=== PATIENT | male | born 1930 | race Caucasian/White ===

== ENCOUNTER 2018-10-09 10:03 | Emergency (ER) | payer MEDICARE ==
[2018-10-09 10:22] VITALS: RESP 16; TEMP 97.8
[2018-10-09] MEDS ORDERED: SODIUM CHLORIDE 0.9% 1,000 ML IV STA (10:56)
[2018-10-09 11:56] LABS: Basophils % (A) 0 %; Eosinophils % (A) 0 %; HCT 42.3 % (39.0-53.0); Lymphocytes # (A) 0.8 k/uL (1.0-4.8); Lymphocytes % (A) 10 %; MCH 31.2 pg (25.0-35.0); MCV 94.6 fL (80.0-100.0); Mean Platelet Volume 7.5; Monocytes # (A) 0.4 k/uL (0-1.0); Monocytes % (A) 5 %; Neutrophils % (A) 83 %; Platelet Count 145 k/uL (150-450); RBC 4.47 m/uL (4.30-5.90); RDW 13.4 % (11.5-15.5); WBC 8.4 k/uL (3.8-10.6)
[2018-10-09 12:08] LABS: INR 0.9 (<1.2); Partial Thromboplastin Time 23.4 sec (22.0-30.0); Prothrombin Time 10.1 sec (9.0-12.0)
[2018-10-09 12:09] LABS: Albumin 4.3 g/dL (3.5-5.0); Calcium 9.6 mg/dL (8.4-10.2); Potassium 5.3 mmol/L (3.5-5.1); Total Bilirubin 0.6 mg/dL (0.2-1.3); Total Protein 7.2 g/dL (6.3-8.2)
--- NOTE | 2018-10-09 12:11 | ED ---
General Adult HPI - General Chief complaint: Extremity Injury, Lower Stated complaint: hip pain/bowel problems Time Seen by Provider: 10/09/18 10:27 Source: patient, RN notes reviewed Mode of arrival: wheelchair Limitations: no limitations - History of Present Illness Initial comments: Patient is a 88-year-old male presented to the emergency room today with a chief complaint of bilateral hip pain radiating down his legs. He does admit that he began having pain yesterday morning. He did go to urgent care. Patient states that he's noticed pain is worse today when he stands up and with certain movements. States better when he sits down. Currently rates pain 4/ 10. Denies any injury or trauma. States that both left and right hip radiates down to approximately the back of the knee. Patient does admit that he had some loose bowel movement this morning had some lower abdominal cramping. States abdomen pain is gone at this time. He denies any other complaints or symptoms currently. Denies any saddle anesthesia, bowel or bladder incontinence or retention. Patient denies any recent fever, chills, shortness of breath, chest pain, nausea or vomiting, numbness or tingling, dysuria or hematuria, constipation, headaches or visual changes, or any other complaints. - Related Data Home Medications Medication Instructions Recorded Confirmed Allopurinol [Zyloprim] 100 mg PO DAILY 10/09/18 10/09/18 Atorvastatin [Lipitor] 40 mg PO HS 10/09/18 10/09/18 Carvedilol [Coreg] 6.25 mg PO BID 10/09/18 10/09/18 Ferrous Sulfate [Iron (65 MG 325 mg PO DAILY 10/09/18 10/09/18 Elemental)] Furosemide [Lasix] 20 mg PO DAILY 10/09/18 10/09/18 Glimepiride [Amaryl] 2 mg PO DAILY 10/09/18 10/09/18 Niacin [Niaspan] 500 mg PO HS 10/09/18 10/09/18 sitaGLIPtin [Januvia] 50 mg PO DAILY 10/09/18 10/09/18 traZODone HCL [Desyrel] 50 mg PO HS 10/09/18 10/09/18 Previous Rx's Medication Instructions Recorded Hydrocodone/Acetaminophen [Mcdowell 1 each PO Q6HR PRN #12 tab 10/09/18 5-325] Allergies Allergy/AdvReac Type Severity Reaction Status Date / Time No Known Allergies Allergy Verified 10/09/18 11:09 Review of Systems ROS Statement: Those systems with pertinent positive or pertinent negative responses have been documented in the HPI. ROS Other: All systems not noted in ROS Statement are negative. Past Medical History Past Medical History: Diabetes Mellitus, Hypertension Additional Past Medical History / Comment(s): Sciatica, kidney disease History of Any Multi-Drug Resistant Organisms: None Reported Past Surgical History: Back Surgery Additional Past Surgical History / Comment(s): Prostate cancer Past Psychological History: No Psychological Hx Reported Smoking Status: Never smoker Past Alcohol Use History: Occasional Past Drug Use History: None Reported General Exam Limitations: no limitations Course Vital Signs 10/09/18 10:16 Temperature 97.8 F Pulse Rate 89 Respiratory 16 Rate Blood Pressure 148/81 O2 Sat by Pulse 97 Oximetry - Reevaluation(s) Reevaluation #1: 10/09/18 12:25 Patient's kidney function mildly elevated here in the emergency room. CT the abdomen and pelvis was ordered with contrast. However, due to patient's kidney function being elevated was discussed with the patient about performing CT with contrast causing possible further damage and possibility of needing dialysis. Patient does admit that he does see a manager of case management and he has been worried about his kidneys so he has declined any IV contrast. He is agreeable to perform CT without. Medical Decision Making - Medical Decision Making Case discussed in detail with attending physician Dr. Cook. CT the abdomen and pelvis was performed without contrast as patient stated that he was worried about his kidneys and did not want to have IV contrast. Was discussed in detail that a CT without contrast would not show us evidence of any issues with aorta or other arteries. Patient was aware of this states that this pain is worse with movements. He is agreeable to try pain medicine. Was discussed about further evaluation with aorta by ultrasound which he has declined at this time. States he plans follow-up with his family doctor tomorrow. Patient will be given short prescription of Mcdowell. An opiate started talking form was reviewed and filled out. Patient will be discharged home. Return for any other concerns. - Lab Data Result diagrams: 10/09/18 11:34 10/09/18 11:34 Lab Results 10/09/18 10/09/18 10/09/18 Range/Units 11:34 11:34 11:34 WBC 8.4 (3.8-10.6) k/uL RBC 4.47 (4.30-5.90) m/uL Hgb 14.0 (13.0-17.5) gm/dL Hct 42.3 (39.0-53.0) % MCV 94.6 (80.0-100.0) fL MCH 31.2 (25.0-35.0) pg MCHC 33.0 (31.0-37.0) g/dL RDW 13.4 (11.5-15.5) % Plt Count 145 L (150-450) k/uL Neutrophils % 83 % Lymphocytes % 10 % Monocytes % 5 % Eosinophils % 0 % Basophils % 0 % Neutrophils # 7.0 (1.3-7.7) k/uL Lymphocytes # 0.8 L (1.0-4.8) k/uL Monocytes # 0.4 (0-1.0) k/uL Eosinophils # 0.0 (0-0.7) k/uL Basophils # 0.0 (0-0.2) k/uL PT 10.1 (9.0-12.0) sec INR 0.9 (<1.2) APTT 23.4 (22.0-30.0) sec Sodium 137 (137-145) mmol/L Potassium 5.3 H (3.5-5.1) mmol/L Chloride 104 (98-107) mmol/L Carbon Dioxide 22 (22-30) mmol/L Anion Gap 11 mmol/L BUN 44 H (9-20) mg/dL Creatinine 1.56 H (0.66-1.25) mg/dL Est GFR (CKD-EPI)AfAm 45 (>60 ml/min/1.73 sqM) Est GFR (CKD-EPI)NonAf 39 (>60 ml/min/1.73 sqM) Glucose 331 H (74-99) mg/dL Calcium 9.6 (8.4-10.2) mg/dL Total Bilirubin 0.6 (0.2-1.3) mg/dL AST 29 (17-59) U/L ALT 33 (21-72) U/L Alkaline Phosphatase 70 (38-126) U/L Total Protein 7.2 (6.3-8.2) g/dL Albumin 4.3 (3.5-5.0) g/dL Urine Color Urine Appearance (Clear) Urine pH (5.0-8.0) Ur Specific [place] (1.001-1.035) Urine Protein (Negative) Urine Glucose (UA) (Negative) Urine Ketones (Negative) Urine Blood (Negative) Urine Nitrite (Negative) Urine Bilirubin (Negative) Urine Urobilinogen (<2.0) mg/dL Ur Leukocyte Esterase (Negative) 10/09/18 Range/Units 13:05 WBC (3.8-10.6) k/uL RBC (4.30-5.90) m/uL Hgb (13.0-17.5) gm/dL Hct (39.0-53.0) % MCV (80.0-100.0) fL MCH (25.0-35.0) pg MCHC (31.0-37.0) g/dL RDW (11.5-15.5) % Plt Count (150-450) k/uL Neutrophils % % Lymphocytes % % Monocytes % % Eosinophils % % Basophils % % Neutrophils # (1.3-7.7) k/uL Lymphocytes # (1.0-4.8) k/uL Monocytes # (0-1.0) k/uL Eosinophils # (0-0.7) k/uL Basophils # (0-0.2) k/uL PT (9.0-12.0) sec INR (<1.2) APTT (22.0-30.0) sec Sodium (137-145) mmol/L Potassium (3.5-5.1) mmol/L Chloride (98-107) mmol/L Carbon Dioxide (22-30) mmol/L Anion Gap mmol/L BUN (9-20) mg/dL Creatinine (0.66-1.25) mg/dL Est GFR (CKD-EPI)AfAm (>60 ml/min/1.73 sqM) Est GFR (CKD-EPI)NonAf (>60 ml/min/1.73 sqM) Glucose (74-99) mg/dL Calcium (8.4-10.2) mg/dL Total Bilirubin (0.2-1.3) mg/dL AST (17-59) U/L ALT (21-72) U/L Alkaline Phosphatase (38-126) U/L Total Protein (6.3-8.2) g/dL Albumin (3.5-5.0) g/dL Urine Color Yellow Urine Appearance Clear (Clear) Urine pH 6.5 (5.0-8.0) Ur Specific [place] 1.011 (1.001-1.035) Urine Protein Trace H (Negative) Urine Glucose (UA) 4+ H (Negative) Urine Ketones Negative (Negative) Urine Blood Negative (Negative) Urine Nitrite Negative (Negative) Urine Bilirubin Negative (Negative) Urine Urobilinogen <2.0 (<2.0) mg/dL Ur Leukocyte Esterase Negative (Negative) Disposition Clinical Impression: Back pain Disposition: HOME SELF-CARE Condition: Good Instructions: Acute Low Back Pain (ED) Additional Instructions: Please use medication as discussed. Please follow-up with family doctor in the next 2 days. Please return to emergency room if the symptoms increase or worsen or for any other concerns. Prescriptions: Hydrocodone/Acetaminophen [Mcdowell 5-325] 1 each PO Q6HR PRN #12 tab PRN Reason: Pain Is patient prescribed a controlled substance at d/c from ED?: No Referrals: Nonstaff,Physician [Primary Care Provider] - 1-2 days Time of Disposition: 14:20
[2018-10-09 13:23] LABS: Appearance,Urine Clear (Clear); Bilirubin,Urine Negative (Negative); Blood,Urine Negative (Negative); Color,Urine Yellow; Glucose,Urine (UA) 4+ (Negative); Ketones,Urine Negative (Negative); Leukocyte Esterase,Urine Negative (Negative); Nitrite,Urine Negative (Negative); PH, Urine 6.5 (5.0-8.0); Protein,Urine Trace (Negative); Specific Gravity,Urine 1.011 (1.001-1.035); Urobilinogen,Urine <2.0 mg/dL (<2.0)
--- NOTE | 2018-10-09 13:37 | CT ---
EXAMINATION TYPE: CT abdomen pelvis wo con DATE OF EXAM: 10/09/2018 COMPARISON: NONE HISTORY: Low back pain and constipation CT DLP: 667 mGycm Automated exposure control for dose reduction was used. FINDINGS: There has been a midline sternotomy. There is mild dependent atelectasis in the dependent portions of the lungs. There is no pleural or pe ricardial fluid. The heart is enlarged. There is coronary artery calcification as well as other vascu lar calcifications. Within the abdomen, there is evidence of old granulomatous disease of the spleen. The liver and gallb ladder are unremarkable. Both adrenal glands are normal. There is a 3 cm exophytic mass arising from the lower pole of the left kidney. This likely represents a cyst. There is no nephrolithiasis or hydronephrosis. The pancreas is unremarkable. There is no significant retroperitoneal, iliac or inguinal adenopathy. The bladder is unremarkable. There is mild thickening of the descending colon. This may be due to lack of distention. The colon is otherwise unremarkable. The appendix is not visualized. Small bowel loops of normal caliber. There is no free fluid and no free air. There is degenerative disc disease, facet arthropathy and hypertrophic spondylosis within the spine. There is metallic density adjacent to the L5-S1 facet within the spinal canal which appears to be ext radural and this may relate to previous surgery. IMPRESSION: 1. CARDIOMEGALY. 2. 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 3. PROBABLE 3 CM CYST IN THE LOWER POLE OF THE LEFT KIDNEY. THIS COULD BE CONFIRMED WITH ULTRASOUND. 4. THICKENING OF THE ASCENDING COLON MAY BE DUE TO LACK OF DISTENTION. PLEASE CORRELATE FOR COLITIS. 5. EXTENSIVE DEGENERATIVE CHANGE WITHIN THE SPINE. METALLIC DENSITY ADJACENT TO THE L5-S1 FACET ON TH E LEFT LIKELY RELATES TO PREVIOUS SURGERY.
[2018-10-09] MEDS ORDERED: HYDROcodone/APAP 5-325MG 1 EACH TAB PO STA (14:07)
[2018-10-09 15:23] VITALS: BP 136/79; PULSE 98
== END 2018-10-09 15:20 | disposition home or self-care (01) ==
LOC: EC 10:03
DX: M54.9 Dorsalgia, unspecified (principal); M25.552 Pain in left hip; M25.551 Pain in right hip; E11.9 Type 2 diabetes mellitus without complications; I10 Essential (primary) hypertension; Z79.02 Long term (current) use of antithrombotics/antiplatelets; Z79.84 Long term (current) use of oral hypoglycemic drugs; Z79.899 Other long term (current) drug therapy; Z85.46 Personal history of malignant neoplasm of prostate
CPT/HCPCS: 36415; 74176; 80053; 81003; 85025; 85610; 85730; 96360; 96361; 99284